=== PATIENT | female | born 1945 | race Two or more races ===

== ENCOUNTER 2022-11-29 12:31 | Emergency (ER) | payer MEDICARE, OTHER ==
[~2022-11-29] VITALS: Ht 152.4 cm; Wt 70.8 kg
--- NOTE | 2022-11-29 12:36 | NUR ---
PT IS IN ROOM #1B. DR CHENG EVALUATED THE PT.
[2022-11-29] MEDS ORDERED: ALBUTEROL IH (12:51)
[2022-11-29] MEDS ORDERED: PREDNISONE (12:51)
[2022-11-29] MEDS ORDERED: BUDESONIDE (12:51)
[2022-11-29] MEDS ORDERED: NAPROSYN (12:51)
[2022-11-29] MEDS ORDERED: FORMOTEROL (12:51)
[2022-11-29 13:04] LABS: MEAN CORPUSCULAR HEMOGLOBIN 31.4 uug (24.7-32.8); MEAN CORPUSCULAR VOLUME 93.9 fL (75.5-95.3); PLATELET COUNT (AUTO) 312 K/uL (179-408)
[2022-11-29 13:14] LABS: CARBON DIOXIDE 28 mmol/L (21-32); CHLORIDE 106 mmol/L (98-107); CREATININE 0.6 mg/dL (0.6-1.3); GLUCOSE 139 mg/dL (74-106); POTASSIUM 3.6 mmol/L (3.5-5.1); UREA NITROGEN, BLOOD 12 mg/dL (7-18)
[2022-11-29 13:26] LABS: ALANINE AMINOTRANSFERASE 19 U/L (14-59); ALKALINE PHOSPHATASE 99 U/L (50-136); ASPARTATE AMINOTRANSFERASE 17 U/L (15-37); BILIRUBIN,DIRECT 0.1 mg/dL (0.0-0.2); BILIRUBIN,TOTAL 0.8 mg/dL (0.2-1.0); TOTAL PROTEIN, SERUM 7.1 g/dL (6.4-8.2)
[2022-11-29] MEDS ORDERED: SWABABLE VALVE TRANSFER SET EA MC ONE (14:11)
[2022-11-29] MEDS ORDERED: IOHEXOL 350 100 ML INFUS..BTL ONE (14:12)
[2022-11-29] MEDS ORDERED: IV NORMAL SALINE 250 ML IV ONE (14:12)
[2022-11-29] MEDS ORDERED: BENZ-13 PO (15:56)
--- NOTE | 2022-11-29 16:41 | NUR ---
PT WAS D/C'd TO HOME. D/C INSTRUCTIONS GIVEN TO THE PT BY DR CHENG.
[2022-11-29 16:43] VITALS: BP 134/76
== END 2022-11-29 16:43 | disposition home or self-care (01) ==
LOC: ER 12:47
DX: R06.02 Shortness of breath (principal); R05.9 Cough, unspecified; J45.909 Unspecified asthma, uncomplicated; R79.1 Abnormal coagulation profile
CPT/HCPCS: 99285; 71275; 71045; 80076; 80048; 83880; 85025; 85379; 85730; 84484; 36415; 93005; Q9967; A4663

== ENCOUNTER 2024-07-06 08:14 | Inpatient (IN) | payer MEDICARE, OTHER ==
[~2024-07-06] VITALS: Ht 152.4 cm; Wt 71.2 kg
[2024-07-06] MEDS: CEFAZOLIN 2 G in IV DEXTROSE 5% 100 ML IV ONE (07:00)
[~2024-07-06 08:14] MED LIST: ALBUTEROL IH; BENZ-13 PO; BUDESONIDE; FORMOTEROL; NAPROSYN; PREDNISONE
[2024-07-06] MEDS ORDERED: PROPOFOL 200 MG/20 ML BOTTLE ONE (11:00)
[2024-07-06] MEDS ORDERED: FENTANYL CITRATE 250 MCG/5 ML AMPUL ONE (11:18)
[2024-07-06] MEDS ORDERED: ROCURONIUM BROMIDE 50 MG/5 ML VIAL ONE (11:19)
[2024-07-06] MEDS ORDERED: BUPIVACAINE/EPI PF 0.5% 10 ML VIAL ONE (11:21)
[2024-07-06] MEDS ORDERED: LIDOCAINE HCL 1% 20 ML VIAL ONE (11:21)
[2024-07-06] MEDS ORDERED: LABETALOL HCL 100 MG/20 ML VIAL ONE (12:16)
[2024-07-06] MEDS ORDERED: FENTANYL CITRATE 100 MCG/2 ML AMPUL ONE (14:06)
[2024-07-06] MEDS ORDERED: ONDANSETRON 4 MG/2 ML VIAL ONE (14:38)
[2024-07-06] MEDS ORDERED: HYDROMORPHONE 1 MG/1 ML DISP.SYRIN ONE (15:51)
[2024-07-06] MEDS ORDERED: ACETAMINOPHEN 325 MG TABLET ONE (16:43)
--- NOTE | 2024-07-06 16:55 | NUR ---
ADMITTED FROM OR A 79 YO INDIAN FEMALE WITH THE ADM DX OF SP LAP CHOLECYSTECTOMY AWAKE ALERT AND FULLY AWAKE NO SS OF RESPIRATORY DISTRESS, O2 AT 2L SATURATING 99%, STARTED LR IV AT 100 MLS/HR. PER DR YOSEF MARQUEZ TO START ON CLEAR LIQUID TOLERATED. WILL NOTIFY HOSPITALIST FOR FURTHER ORDERS. ADMISSION ASSESSMENT INITIATED
[2024-07-06] MEDS ORDERED: GABA300C PO (17:05)
[2024-07-06] MEDS ORDERED: GABA-532 PO (17:05)
[2024-07-06] MEDS ORDERED: BLOO-360 IN (17:08)
[2024-07-06] MEDS ORDERED: INSU100V28 SQ (17:09)
[2024-07-06] MEDS ORDERED: FAMO40TA7 PO (17:11)
[2024-07-06] MEDS ORDERED: CELE100C PO (17:13)
[2024-07-06] MEDS ORDERED: SEMA0.25 SQ (17:14)
[2024-07-06] MEDS ORDERED: METF-440 PO (17:14)
[2024-07-06] MEDS ORDERED: LEVO50TA8 PO (17:15)
[2024-07-06] MEDS ORDERED: ROSU5TAB PO (17:17)
[2024-07-06] MEDS ORDERED: ZOLP5TAB8 PO (17:18)
[2024-07-06] MEDS ORDERED: ALBU2.5V38 IH (17:21)
[2024-07-06 17:38] VITALS: BP 131/72; TEMP 98.2; O2SAT 97
[2024-07-06] MEDS: GABAPENTIN 100 MG CAPSULE PO SCH (18:01)
[2024-07-06] MEDS: ACETAMINOPHEN 325 MG TABLET PO SCH (18:01)
[2024-07-06] MEDS: CELECOXIB 200 MG CAPSULE PO SCH (18:03)
[2024-07-06] MEDS: IV LACTATED RINGERS SOLUTION 1,000 ML IV PRN (18:03)
--- NOTE | 2024-07-06 18:45 | NUR ---
PANDA DOAN NOTIFIED OF ADM ORDERS TO BE RECONCILED
[2024-07-06 20:00] VITALS: BP 134/49; TEMP 98.7; O2SAT 97
[2024-07-06] MEDS ORDERED: IPRATROPIUM BROMIDE 0.5 MG/2.5 ML NEBU INH PRN (20:30)
[2024-07-06] MEDS ORDERED: ALBUTEROL SULFATE 2.5 MG/3 ML NEBU IH PRN (20:30)
[2024-07-06] MEDS ORDERED: ZOLPIDEM 5 MG TABLET PO PRN (20:30)
[2024-07-06] MEDS ORDERED: CHOLECALCIFEROL 1,000 UNIT TABLET PO SCH (20:30)
[2024-07-06] MEDS ORDERED: MISCELLANEOUS MED XX PRN ×3 (20:30)
[2024-07-06 20:50] VITALS: O2SAT 97
[2024-07-06] MEDS: ATORVASTATIN 10 MG TABLET PO SCH (21:30)
[2024-07-06] MEDS ORDERED: DEXTROSE 50% 50 ML DISP.SYRIN IV PRN (23:00)
[2024-07-06] MEDS: BLOOD SUGAR DIAGNOSTIC 1 EACH STRIP VI SCH (23:28)
[2024-07-06] MEDS: HYDROMORPHONE 1 MG/1 ML DISP.SYRIN IV PRN (23:42)
[2024-07-06] MEDS: ONDANSETRON 4 MG/2 ML VIAL IV PRN (23:42)
[2024-07-07] VITALS: BP 115/47; TEMP 99.1; O2SAT 95
--- NOTE | 2024-07-07 00:06 | NUR ---
Called DR Crenshaw and notified that pt is having nausea with vomiting, and unable to tolerate the PO meds. He ordered zofran IV Q 4 hrs, Dilaudid 1 mg IV Q 4 hrs, and labs. At 00:12 Given Zofran 4 mg IV PRN, and Dilaudid 1 mg IV PRN for pain scale 9/10.
[2024-07-07 04:00] VITALS: BP 109/47; TEMP 99; O2SAT 97
[2024-07-07 06:39] LABS: BASOPHILS % (AUTO) 0.5 % (0.0-2.0); EOSINOPHILS % (AUTO) 0.3 % (0.0-7.0); HEMATOCRIT 36.1 % (31.2-41.9); HEMOGLOBIN 12.4 g/dL (10.9-14.3); LYMPHOCYTES # (AUTO) 1.9 K/uL (0.8-4.8); LYMPHOCYTES % (AUTO) 20.5 % (20.5-51.5); MEAN CORPUSCULAR HEMOGLOBIN 32.3 uug (24.7-32.8); MEAN CORPUSCULAR HGB CONC 34 g/dL (32.3-35.6); MONOCYTES # (AUTO) 0.9 K/uL (0.1-1.30); MONOCYTES % (AUTO) 9.9 % (0.0-11.0); NEUTROPHILS # (AUTO) 6.5 K/uL (1.8-8.9); NEUTROPHILS % (AUTO) 68.8 % (38.5-71.5); PLATELET COUNT (AUTO) 230 K/uL (179-408); RED BLOOD CELL COUNT(AUTO) 3.84 MIL/uL (3.63-4.92); RED CELL DISTRIBUTION WIDTH 13.3 % (12.3-17.7); WHITE BLOOD COUNT (AUTO) 9.4 K/uL (3.8-11.8)
[2024-07-07 06:49] LABS: DIFFERENTIAL COMMENT 1
[2024-07-07 06:57] LABS: CALCIUM 8.2 mg/dL (8.5-10.1); CARBON DIOXIDE 30 mmol/L (21-32); CHLORIDE 102 mmol/L (98-107); CREATININE 0.5 mg/dL (0.6-1.3); GLUCOSE 124 mg/dL (74-106); MAGNESIUM 1.8 mg/dL (1.8-2.4); PHOSPHOROUS 3.8 mg/dL (2.5-4.9); POTASSIUM 3.6 mmol/L (3.5-5.1); SODIUM SERUM 139 mmol/L (136-145); UREA NITROGEN, BLOOD 6 mg/dL (7-18)
[2024-07-07] MEDS: LEVOTHYROXINE SODIUM 50 MCG TABLET PO SCH (07:00)
--- NOTE | 2024-07-07 07:15 | NUR ---
RECEIVED PATIENT IN BED AWAKE ALERT AND ORIENTED X3 NO SS OF DISTRESS ON 2L NC SATURATING 95%, STILL C/O DULL ABDOMINAL PAIN, NO FLATUS BUT BURP ONLY, SR ON MONITOR
[2024-07-07 08:00] VITALS: BP 122/49; TEMP 98.7; O2SAT 98
[2024-07-07] MEDS: INSULIN REGULAR, HUMAN 1000 UNIT/10 ML VIAL SQ PRN (08:17)
[2024-07-07] MEDS: CHOLECALCIFEROL 1,000 UNIT TABLET PO SCH (08:19)
[2024-07-07] MEDS: CYANOCOBALAMIN 1,000 MCG TABLET PO SCH (08:19)
--- NOTE | 2024-07-07 09:45 | NUR ---
DR NAVAS CALLED , SAID WILL SEE PT AND POSSIBLE DISCHARGE. ORDER TO REPLACE MAGNESIUM GIVEN
[2024-07-07] MEDS: MAGNESIUM SULFATE/D5W 100 ML IV SCH (10:18)
--- NOTE | 2024-07-07 11:56 | NUR ---
SEEN BY DR NAVAS, DISCHARGE ORDER GIVEN
[2024-07-07 12:00] VITALS: BP 119/50; TEMP 97.8; O2SAT 95
--- NOTE | 2024-07-07 15:55 | NUR ---
discharged home stable accompanied by family via private car. instruction to f/u dr suazo given. patient stable upon discharge
== END 2024-07-07 15:55 | disposition home or self-care (01) | DRG 419 ==
LOC: DS 08:14 → UNDOADMIN 16:36 → TELE3 16:36 → MEDSURG3 07-07 11:41
PROVIDERS: ADMIT Surgery; ATTEND Surgery
PROC: 0FT44ZZ Resection of Gallbladder, Percutaneous Endoscopic Approach (ICD-10-PCS; principal; 2024-07-06)
DX: K80.10 Calculus of gallbladder with chronic cholecystitis without obstruction (principal); I10 Essential (primary) hypertension; E11.9 Type 2 diabetes mellitus without complications; I25.10 Atherosclerotic heart disease of native coronary artery without angina pectoris; E66.9 Obesity, unspecified; Z68.30 Body mass index [BMI] 30.0-30.9, adult; J45.909 Unspecified asthma, uncomplicated
CPT/HCPCS: 36415; 83735; 84100; 85025; A4649; A4663; G0378; J0690; J1170; J1815; J1885; J2405; J3010; J3475; J3490; J7040; J7120